=== PATIENT | female | born 1960 | race Two or more races ===

== ENCOUNTER 2017-11-15 10:04 | Outpatient (CLI) | payer OTHER | END 2017-11-15 13:29 | disposition home or self-care (01) | LOC: MAMO-SONO 10:04 | DX: Z12.31 Encounter for screening mammogram for malignant neoplasm of breast (principal); N60.11 Diffuse cystic mastopathy of right breast; N60.12 Diffuse cystic mastopathy of left breast ==

== ENCOUNTER 2018-12-11 10:07 | Outpatient (CLI) | payer OTHER | END 2018-12-11 10:35 | disposition home or self-care (01) | LOC: MAMO-SONO 10:07 | DX: Z12.31 Encounter for screening mammogram for malignant neoplasm of breast (principal); N60.11 Diffuse cystic mastopathy of right breast; N60.12 Diffuse cystic mastopathy of left breast; Z87.898 Personal history of other specified conditions ==

== ENCOUNTER 2018-12-16 13:49 | Outpatient (CLI) | payer OTHER | END 2018-12-16 13:58 | disposition home or self-care (01) | LOC: NUCLEAR 13:49 | DX: M81.0 Age-related osteoporosis without current pathological fracture (principal) ==